=== PATIENT | female | born 1970 ===

== ENCOUNTER 2025-04-01 09:00 | Inpatient (IN) | payer OTHER ==
[~2025-04-01] VITALS: Ht 152.4 cm; Wt 71.2 kg
[2025-04-01 08:52] LABS: BASO % 0.8 % (0.1-1.2); EOS # 0.20 (0.04-0.54); EOS % 2.4 % (0.7-7.0); LYMPH # 2.74 (1.18-3.74); LYMPH % 32.7 % (19.3-53.1); MEAN PLATELET VOLUME 10.20 fl (9.4-12.4); MONO # 0.43 (0.24-0.82); MONO % 5.1 % (4.7-12.5); NEUT # 4.94 (1.56-6.13); NEUT % 58.9 % (34.0-71.1); RED CELL DISTRIBUTION WIDTH 17.3 % (11.6-14.4)
[~2025-04-01 09:00] MED LIST: ACTOS15 MG PO; CATAPRES0.3 MG; NEURONTIN800 MG PO; SYNJARDY 12.5-1 EACH PO; TENORMIN50 M1 PO; WELLBUTRIN XL300 MG PO; ZOCOR20 MG PO
[2025-04-01 09:02] VITALS: BP 105/80
[2025-04-01 09:12] LABS: INR 1.0
[2025-04-01 09:17] LABS: URINE APPEARANCE Clear; URINE BILIRRUBIN Negative (NEGATIVE); URINE BLOOD Negative; URINE COLOR Yellow; URINE KETONE Trace (NEGATIVE); URINE LEUKOCYTE Trace; URINE NITRATE Negative; URINE PROTEIN Negative (NEGATIVE); URINE UROBILINOGEN 1.0 E.U./dl
[2025-04-01 09:18] LABS: URINE BACTERIA 326.3 uL (0.0-1933); URINE EPITHELIAL CELLS 69.3 uL (0.0-38.8); URINE RBC 11.2 uL (0.0-20.8); URINE WBC 156.8 uL (0.0-23.2)
[2025-04-01 09:33] LABS: URINE CAST 0.14 uL (0.0-1.40); URINE GLUCOSE >=1000 MG/DL (NEGATIVE); URINE YEAST FEW /hpf
[2025-04-01 09:33] LABS: ALT/SGPT 33.0 U/L (12-78); AST/SGOT 18.0 U/L (15-37); BILIRUBIN TOTAL 1.01 mg/dL (0.3-1.2); BUN CREA RATIO 14.0 (7.0-25.0); CREATININE SERUM 0.88 mg/dL (0.55-1.02); GFR 66.47; GLOBULINA 3.7 G/DL (2.4-3.5); GLUCOSE FASTING 108.0 mg/dL (65-100); OSMOLALITY SERUM 283.0 MOSM/KG (275-295)
[2025-04-06] MEDS ORDERED: CEFAZOLIN SODIUM 1,000 MG VIAL ONE (08:07)
[2025-04-06] MEDS ORDERED: ENALAPRILAT DIHYDRATE 1.25 MG/ML VIAL IV ONE ×3 (10:25→13:16)
[2025-04-06] MEDS ORDERED: hydrALAZINE HCL 20 MG VIAL ONE ×2 (10:35→20:53)
[2025-04-06] MEDS ORDERED: MORPHINE SULFATE 4 MG/ML CARTRIDGE IV PRN (14:30)
[2025-04-06] MEDS ORDERED: ENOXAPARIN SODIUM 40 MG/0.4 ML SYRINGE SUBCUTANEO SCH (17:00)
[2025-04-06] MEDS ORDERED: hydrALAZINE HCL 20 MG VIAL IV PRN (17:30)
[2025-04-06] MEDS ORDERED: INSULIN LISPRO 1,000 UNIT/10 ML UNITS SUBCUTANEO PRN (17:30)
[2025-04-06] MEDS ORDERED: DEXTROSE 50 % IN WATER 0.5 G/ML VIAL IV PRN (17:30)
[2025-04-06] MEDS ORDERED: ENOXAPARIN SODIUM 40 MG/0.4 ML SYRINGE SUBCUTANEO ONE (18:14)
[2025-04-06] MEDS ORDERED: METRONIDAZOLE/SODIUM CHLORIDE 500 MG/100 ML PIGGYBACK IV ONE (20:54)
[2025-04-06] MEDS ORDERED: METRONIDAZOLE/SODIUM CHLORIDE 500 MG/100 ML PIGGYBACK IV SCH (21:00)
[2025-04-06 21:45] VITALS: BP 125/67; O2SAT 98
[2025-04-06 23:34] VITALS: BP 117/65; O2SAT 99
[2025-04-07 05:08] VITALS: BP 86/54; O2SAT 98
[2025-04-07] MEDS ORDERED: ACETAMINOPHEN 500 MG GEL..CAP PO PRN (07:45)
[2025-04-07 08:00] VITALS: BP 94/64; O2SAT 98
[2025-04-07] MEDS ORDERED: CEFTRIAXONE SODIUM 2,000 MG VIAL IV SCH (09:00)
[2025-04-07] MEDS ORDERED: CEFTRIAXONE SODIUM 2,000 MG VIAL IV NR (10:10)
[2025-04-07 12:00] VITALS: BP 108/53; O2SAT 97
[2025-04-07 14:38] LABS: BASO % 0.4 % (0.1-1.2); EOS # 0.00 (0.04-0.54); EOS % 0.0 % (0.7-7.0); LYMPH # 2.15 (1.18-3.74); LYMPH % 16.1 % (19.3-53.1); MEAN PLATELET VOLUME 11.30 fl (9.4-12.4); MONO # 1.19 (0.24-0.82); MONO % 8.9 % (4.7-12.5); NEUT # 9.91 (1.56-6.13); NEUT % 74.2 % (34.0-71.1); RED CELL DISTRIBUTION WIDTH 17.5 % (11.6-14.4)
[2025-04-07 15:07] VITALS: BP 117/55; O2SAT 98
[2025-04-07 15:24] LABS: BUN CREA RATIO 12.0 (7.0-25.0); CREATININE SERUM 2.04 mg/dL (0.55-1.02); GFR 25.19; GLUCOSE FASTING 143.0 mg/dL (65-100); OSMOLALITY SERUM 286.0 MOSM/KG (275-295)
[2025-04-07] MEDS ORDERED: RINGERS SOLUTION,LACTATED 1,000 ML IV SCH (15:30)
[2025-04-07 18:16] LABS: BASO % 0.3 % (0.1-1.2); EOS # 0.00 (0.04-0.54); EOS % 0.0 % (0.7-7.0); LYMPH # 2.49 (1.18-3.74); LYMPH % 16.9 % (19.3-53.1); MEAN PLATELET VOLUME 11.10 fl (9.4-12.4); MONO # 1.53 (0.24-0.82); MONO % 10.4 % (4.7-12.5); NEUT # 10.61 (1.56-6.13); NEUT % 72.1 % (34.0-71.1); RED CELL DISTRIBUTION WIDTH 17.3 % (11.6-14.4)
[2025-04-07] MEDS ORDERED: PANTOPRAZOLE SODIUM 40 MG in 0.9 % SODIUM CHLORIDE 8 ML IV PUSH SCH (19:46)
[2025-04-07] MEDS ORDERED: SOD FERRIC GLUC COMPLX/SUCROSE 125 MG in 0.9 % SODIUM CHLORIDE 100 ML IV SCH (19:48)
[2025-04-07 20:00] VITALS: BP 144/61; O2SAT 96
[2025-04-07 23:07] VITALS: BP 146/52; O2SAT 96
[2025-04-08 04:00] VITALS: BP 160/58; O2SAT 95
[2025-04-08 07:02] VITALS: BP 124/55; O2SAT 92
[2025-04-08 07:06] LABS: BASO % 0.3 % (0.1-1.2); EOS # 0.01 (0.04-0.54); EOS % 0.1 % (0.7-7.0); LYMPH # 1.73 (1.18-3.74); LYMPH % 11.3 % (19.3-53.1); MEAN PLATELET VOLUME 11.00 fl (9.4-12.4); MONO # 1.71 (0.24-0.82); MONO % 11.1 % (4.7-12.5); NEUT # 11.79 (1.56-6.13); NEUT % 76.7 % (34.0-71.1); RED CELL DISTRIBUTION WIDTH 17.5 % (11.6-14.4)
[2025-04-08 07:51] LABS: ALT/SGPT 91.0 U/L (12-78); AST/SGOT 82.0 U/L (15-37); BILIRUBIN TOTAL 0.66 mg/dL (0.3-1.2); BUN CREA RATIO 19.0 (7.0-25.0); CREATININE SERUM 1.55 mg/dL (0.55-1.02); GFR 34.59; GLOBULINA 2.6 G/DL (2.4-3.5); GLUCOSE FASTING 121.0 mg/dL (65-100); OSMOLALITY SERUM 289.0 MOSM/KG (275-295)
[2025-04-08] MEDS ORDERED: CHLORHEXIDINE GLUCONATE 120 ML BOTTLE TOP ONE (09:21)
[2025-04-08 12:00] VITALS: BP 134/55; O2SAT 100
[2025-04-08 15:08] VITALS: BP 151/66; BP 166/66; O2SAT 100
[2025-04-08] MEDS ORDERED: AMINO ACIDS 1 EACH TABLET PO SCH (17:00)
[2025-04-08] MEDS ORDERED: SOD FERRIC GLUC COMPLX/SUCROSE 62.5 MG in 0.9 % SODIUM CHLORIDE 50 ML IV SCH (17:00)
[2025-04-08] MEDS ORDERED: hydrALAZINE HCL 20 MG VIAL IV STA (17:48)
[2025-04-08] MEDS ORDERED: hydrALAZINE HCL 20 MG VIAL IV PRN (18:00)
[2025-04-08] MEDS ORDERED: MORPHINE SULFATE 4 MG/ML CARTRIDGE IV STA (19:47)
[2025-04-08 20:00] VITALS: BP 136/65; O2SAT 100
[2025-04-08] MEDS ORDERED: MORPHINE SULFATE 4 MG/ML CARTRIDGE IV PRN (20:00)
[2025-04-08 23:12] VITALS: BP 158/66; O2SAT 100
[2025-04-09 03:27] LABS: BASO % 0.4 % (0.1-1.2); EOS # 0.03 (0.04-0.54); EOS % 0.2 % (0.7-7.0); LYMPH # 1.62 (1.18-3.74); LYMPH % 11.4 % (19.3-53.1); MEAN PLATELET VOLUME 10.50 fl (9.4-12.4); MONO # 1.13 (0.24-0.82); MONO % 8.0 % (4.7-12.5); NEUT # 11.16 (1.56-6.13); NEUT % 78.8 % (34.0-71.1); RED CELL DISTRIBUTION WIDTH 16.9 % (11.6-14.4)
[2025-04-09 04:15] VITALS: BP 139/62; O2SAT 100
[2025-04-09 07:17] VITALS: BP 139/62; O2SAT 97
[2025-04-09 07:24] LABS: ALT/SGPT 91.0 U/L (12-78); AST/SGOT 61.0 U/L (15-37); BILIRUBIN TOTAL 1.17 mg/dL (0.3-1.2); BUN CREA RATIO 22.0 (7.0-25.0); CREATININE SERUM 1.09 mg/dL (0.55-1.02); GFR 51.92; GLOBULINA 2.8 G/DL (2.4-3.5); GLUCOSE FASTING 115.0 mg/dL (65-100); OSMOLALITY SERUM 292.0 MOSM/KG (275-295)
[2025-04-09 12:43] VITALS: BP 123/78; O2SAT 100
[2025-04-09 14:59] VITALS: BP 164/74; O2SAT 100
[2025-04-09] MEDS ORDERED: CANDESARTAN CILEXETIL 16 MG TABLET PO SCH (17:00)
[2025-04-09] MEDS ORDERED: SODIUM CHLORIDE 0.45% IV SCH (20:45)
[2025-04-09] MEDS ORDERED: SODIUM BICARBONATE IV SCH (20:45)
[2025-04-09 20:51] VITALS: BP 178/77; O2SAT 99
[2025-04-09 23:07] VITALS: BP 176/79; O2SAT 100
[2025-04-10] VITALS (10 sets, daily range): BP systolic 149–187; BP diastolic 67–89; O2SAT 97–100
[2025-04-10 10:49] LABS: BASO % 0.5 % (0.1-1.2); EOS # 0.06 (0.04-0.54); EOS % 0.5 % (0.7-7.0); LYMPH # 1.34 (1.18-3.74); LYMPH % 10.1 % (19.3-53.1); MEAN PLATELET VOLUME 10.20 fl (9.4-12.4); MONO # 1.09 (0.24-0.82); MONO % 8.2 % (4.7-12.5); NEUT # 10.55 (1.56-6.13); NEUT % 79.6 % (34.0-71.1); RED CELL DISTRIBUTION WIDTH 17.1 % (11.6-14.4)
[2025-04-10 11:44] LABS: ALT/SGPT 67.0 U/L (12-78); AST/SGOT 31.0 U/L (15-37); BILIRUBIN TOTAL 1.85 mg/dL (0.3-1.2); BUN CREA RATIO 23.0 (7.0-25.0); CREATININE SERUM 0.81 mg/dL (0.55-1.02); GFR 73.14; GLOBULINA 3.2 G/DL (2.4-3.5); GLUCOSE FASTING 147.0 mg/dL (65-100); OSMOLALITY SERUM 286.0 MOSM/KG (275-295)
[2025-04-10] MEDS ORDERED: CANDESARTAN CILEXETIL 32 MG TABLET PO SCH (17:00)
[2025-04-10] MEDS ORDERED: POTASSIUM CHLORIDE IN WATER 100 ML IV ONE (17:30)
[2025-04-10] MEDS ORDERED: POTASSIUM CHLORIDE IN WATER 40 MEQ/100 ML PIGGYBAG IV ONE ×2 (18:15→20:30)
[2025-04-11] VITALS (7 sets, daily range): BP systolic 130–186; BP diastolic 54–82; O2SAT 95–98
[2025-04-11 06:44] LABS: BASO % 0.7 % (0.1-1.2); EOS # 0.29 (0.04-0.54); EOS % 3.4 % (0.7-7.0); LYMPH # 1.52 (1.18-3.74); LYMPH % 17.6 % (19.3-53.1); MEAN PLATELET VOLUME 10.30 fl (9.4-12.4); MONO # 0.94 (0.24-0.82); MONO % 10.9 % (4.7-12.5); NEUT # 5.70 (1.56-6.13); NEUT % 65.9 % (34.0-71.1); RED CELL DISTRIBUTION WIDTH 17.4 % (11.6-14.4)
[2025-04-11 07:26] LABS: ALT/SGPT 52.0 U/L (12-78); AST/SGOT 34.0 U/L (15-37); BILIRUBIN TOTAL 1.7 mg/dL (0.3-1.2); BUN CREA RATIO 25.0 (7.0-25.0); CREATININE SERUM 0.69 mg/dL (0.55-1.02); GFR 88.01; GLOBULINA 2.7 G/DL (2.4-3.5); GLUCOSE FASTING 111.0 mg/dL (65-100); OSMOLALITY SERUM 285.0 MOSM/KG (275-295)
[2025-04-11] MEDS ORDERED: SPIRONOLACTONE 25 MG TABLET PO SCH (09:00)
[2025-04-11] MEDS ORDERED: POTASSIUM PHOS,M-BASIC-D-BASIC 3 MM/ML VIAL IV NR (10:00)
[2025-04-11] MEDS ORDERED: NIFEDIPINE 90 MG TAB.SA.OSM PO STA (13:03)
[2025-04-11] MEDS ORDERED: MAGNESIUM SULFATE IN WATER 4 GM/100 ML PIGGYBACK IV NR (15:30)
[2025-04-11] MEDS ORDERED: POTASSIUM PHOS,M-BASIC-D-BASIC 15 MM in 0.9 % SODIUM CHLORIDE 250 ML IV NR (17:00)
[2025-04-12 04:45] VITALS: BP 139/74; O2SAT 96
[2025-04-12 07:24] VITALS: BP 162/71; O2SAT 97
[2025-04-12 09:46] LABS: BUN CREA RATIO 20.0 (7.0-25.0); CREATININE SERUM 0.61 mg/dL (0.55-1.02); GFR 101.46; GLUCOSE FASTING 133.0 mg/dL (65-100); OSMOLALITY SERUM 283.0 MOSM/KG (275-295)
[2025-04-12] MEDS ORDERED: POTASSIUM CHLORIDE 10 MEQ CAPSULE PO SCH (13:00)
[2025-04-12 15:47] VITALS: BP 160/74; O2SAT 100
[2025-04-12] MEDS ORDERED: NIFEDIPINE 90 MG TAB.SA.OSM PO SCH (21:00)
[2025-04-12 23:23] VITALS: BP 158/74; O2SAT 100
[2025-04-13 04:00] VITALS: BP 139/76; O2SAT 97
[2025-04-13 07:06] VITALS: BP 143/81; O2SAT 100
[2025-04-13 12:00] VITALS: BP 152/91; O2SAT 100
[2025-04-13 13:31] LABS: BASO % 0.8 % (0.1-1.2); EOS # 0.49 (0.04-0.54); EOS % 3.9 % (0.7-7.0); LYMPH # 2.42 (1.18-3.74); LYMPH % 19.4 % (19.3-53.1); MEAN PLATELET VOLUME 10.30 fl (9.4-12.4); MONO # 1.28 (0.24-0.82); MONO % 10.3 % (4.7-12.5); NEUT # 7.79 (1.56-6.13); NEUT % 62.5 % (34.0-71.1); RED CELL DISTRIBUTION WIDTH 18.1 % (11.6-14.4)
[2025-04-13 14:07] LABS: BUN CREA RATIO 21.0 (7.0-25.0); CREATININE SERUM 0.7 mg/dL (0.55-1.02); GFR 86.56; GLUCOSE FASTING 150.0 mg/dL (65-100); OSMOLALITY SERUM 285.0 MOSM/KG (275-295)
[2025-04-13] MEDS ORDERED: POTASSIUM PHOS,M-BASIC-D-BASIC 3 MM/ML VIAL IV NR (15:30)
[2025-04-13 16:00] VITALS: BP 166/77; O2SAT 99
[2025-04-13 19:00] VITALS: BP 167/81; O2SAT 99
[2025-04-13 19:40] VITALS: BP 156/85; O2SAT 98
[2025-04-14 01:11] VITALS: BP 126/78; O2SAT 97
[2025-04-14 10:45] VITALS: BP 119/78; O2SAT 98
== END 2025-04-14 13:30 | disposition home or self-care (01) | DRG 330 ==
LOC: ICU 04-06 07:00 → O/R 04-06 07:00 → SURH 04-06 09:00 → ICU 04-06 21:43 → SURH 04-13 19:50
PROVIDERS: Internal Medicine; Surgery; ADMIT Surgery; ATTEND Surgery
PROC: 0DJD4ZZ Inspection of Lower Intestinal Tract, Percutaneous Endoscopic Approach (ICD-10-PCS; 2025-04-06)
PROC: B41JZZZ Fluoroscopy of Other Lower Arteries (ICD-10-PCS; 2025-04-06)
PROC: 0DTG0ZZ Resection of Left Large Intestine, Open Approach (ICD-10-PCS; principal; 2025-04-06 09:45)
PROC: BT4JZZZ Ultrasonography of Kidneys and Bladder (ICD-10-PCS; 2025-04-07)
PROC: 02HV33Z Insertion of Infusion Device into Superior Vena Cava, Percutaneous Approach (ICD-10-PCS; 2025-04-08)
PROC: 30233N1 Transfusion of Nonautologous Red Blood Cells into Peripheral Vein, Percutaneous Approach (ICD-10-PCS; 2025-04-08)
DX: K63.5 Polyp of colon (principal); D62 Acute posthemorrhagic anemia; Z53.31 Laparoscopic surgical procedure converted to open procedure; I10 Essential (primary) hypertension; R00.0 Tachycardia, unspecified; R06.09 Other forms of dyspnea; E11.9 Type 2 diabetes mellitus without complications; Z79.4 Long term (current) use of insulin